=== PATIENT | female | born 1995 | race Caucasian/White ===

== ENCOUNTER 2020-01-12 09:07 | Emergency (ER) | payer OTHER ==
[~2020-01-12] VITALS: Ht 170.2 cm; Wt 47.6 kg
[~2020-01-12 09:07] MED LIST: PAXIL40 MG PO; PRENATAL TABLE1 EAC1 PO; VISTARIL50 MG PO
== END 2020-01-12 16:06 | disposition home or self-care (01) ==
LOC: ER 09:07
DX: O26.891 Other specified pregnancy related conditions, first trimester (principal); Z04.1 Encounter for examination and observation following transport accident; R10.2 Pelvic and perineal pain; O36.80X0 Pregnancy with inconclusive fetal viability, not applicable or unspecified; V49.88XA Car occupant (driver) (passenger) injured in other specified transport accidents, initial encounter; Y93.89 Activity, other specified; Y92.488 Other paved roadways as the place of occurrence of the external cause; Y99.8 Other external cause status

== ENCOUNTER 2020-07-22 08:00 | Inpatient (IN) | payer OTHER ==
[~2020-07-22] VITALS: Ht 149.9 cm; Wt 3.2 kg
[2020-07-22] MEDS ORDERED: ELAVIL PO (10:48)
[2020-07-28] MEDS ORDERED: AMITRIPTYLINE H25 MG (13:07)
== END 2020-07-31 14:05 | disposition home or self-care (01) | DRG 788 ==
LOC: O/R 07-28 07:33 → OB/GYN 07-28 07:33
PROVIDERS: ADMIT Obstetrics & Gynecology; ATTEND Obstetrics & Gynecology
PROC: 4A1HXFZ Monitoring of Products of Conception, Cardiac Rhythm, External Approach (ICD-10-PCS; 2020-07-28)
PROC: 10D00Z1 Extraction of Products of Conception, Low, Open Approach (ICD-10-PCS; principal; 2020-07-28 18:45)
DX: O65.5 Obstructed labor due to abnormality of maternal pelvic organs (principal); O34.211 Maternal care for low transverse scar from previous cesarean delivery; Z3A.39 39 weeks gestation of pregnancy; Z37.0 Single live birth

== ENCOUNTER 2022-12-20 15:48 | Emergency (ER) | payer OTHER ==
[~2022-12-20] VITALS: Ht 152.4 cm; Wt 56.7 kg
[~2022-12-20 15:48] MED LIST changes: +AMITRIPTYLINE H25 MG; +ELAVIL PO
[2022-12-20] MEDS ORDERED: ZOLOFT100 MG PO (16:11)
[2022-12-20] MEDS ORDERED: GYNE-LOTRIMIN45 GM VAG (20:43)
[2022-12-20] MEDS ORDERED: DUI500 PO (20:43)
== END 2022-12-20 21:42 | disposition home or self-care (01) ==
LOC: ER 15:48
DX: Z34.90 Encounter for supervision of normal pregnancy, unspecified, unspecified trimester (principal); N76.0 Acute vaginitis; N39.0 Urinary tract infection, site not specified; R10.2 Pelvic and perineal pain; Z3A.18 18 weeks gestation of pregnancy; Z91.018 Allergy to other foods